=== PATIENT | female | born 1965 | race Hispanic/Latino ===

== ENCOUNTER 2021-04-02 10:12 | Outpatient (CLI) | payer MEDICARE ==
--- NOTE | 2021-04-02 14:30 | Mammography Report ---
BILATERAL DIGITAL DIAGNOSTIC MAMMOGRAM WITH CAD , 04/02/2021 LEFT LIMITED BREAST ULTRASOUND CLINICAL INFORMATION / INDICATION: Patient states the left nipple has become inverted/retracted. Mookie tionally she states she is having left nipple discharge with a white/yellowish color. TECHNIQUE: Digital bilateral mammographic imaging was performed. Limited ultrasound was performed. Th is examination was interpreted with the benefit of Computer-Aided Detection (CAD) analysis. COMPARISON: 04/13/2017 FINDINGS: Breast Density: The breasts are heterogeneously dense, which may obscure small masses. MAMMOGRAPHIC FINDINGS: No dominant mass, suspicious calcifications, or architectural distortion in ei ther breast. No mammographic abnormality is noted in the left breast to account for the complaint of left nipple retraction/nonbloody nipple discharge. Overall the appearance of the mammogram is stable from 2017. ULTRASOUND FINDINGS: Targeted ultrasound evaluation was performed of the area of interest. Sonograp hic evaluation of the subareolar left breast shows mild to moderate ductal ectasia. Within the dilate d ducts, there is nonspecific debris, but no intraductal mass. No solid or cystic mass identified in the subareolar breast. IMPRESSION: No mammographic or sonographic evidence of malignancy. However, due to the history of dev eloping nipple retraction, surgical consultation is recommended for further evaluation. If clinically warranted, breast MRI can be performed for more detailed evaluation of the left breast. Follow up recommendation: Surgical consult for history of left nipple retraction. BI-RADS Category 2: Benign. A "normal" or negative report should not discourage follow up or biopsy of a clinically significant f inding. A written summary of these findings will be mailed to the patient. The patient will be entered into a mammography reporting system which will generate a reminder letter for the patient's next appointmen t at the appropriate interval. According to the [employer], yearly mammograms are recommended starting at age 40 and continuing as long as a woman is in good health. Breast MRI is recommended for women with an toy roximately 20-25% or greater lifetime risk of breast cancer, including women with a strong family his tory of breast or ovarian cancer and women who have been treated for Hodgkin's disease. Signer Name: Salma Coffman MD Signed: 04/02/2021 2:26 PM Workstation Name: [id number]
== END 2021-04-02 10:13 | disposition home or self-care (01) ==
LOC: MAMMO 10:12
PROVIDERS: ATTEND Nurse Practitioner Family
DX: N64.52 Nipple discharge (principal)
CPT/HCPCS: 77066